=== PATIENT | male | born 1940 ===

== ENCOUNTER 2018-02-20 11:07 | Observation (INO) | payer MEDICARE, OTHER ==
[2017-10-12 21:37] VITALS: PULSE 158
[2018-02-20 11:18] VITALS: BMI 25.8
[2018-02-20 11:32] LABS: BASO # 0.1 K/uL (0.0-0.2); BASO % 1.4 % (0.0-2.0); EOS # 0.5 K/uL (0.0-0.7); EOS % 6.5 % (0.0-4.0); HEMOGLOBIN 11.4 g/dL (12.0-18.0); LYMPH % 24.9 % (20.0-40.0); MEAN CORPUSCULAR HEMOGLOBIN 28.2 pg (27.0-31.0); MEAN CORPUSCULAR HGB CONC 32.8 g/dL (33.0-37.0); MEAN PLATELET VOLUME 7.5 fL (7.2-11.7); MONO # 0.7 K/uL (0.0-0.8); MONO % 9.1 % (0.0-10.0); NEUT # 4.7 K/uL (1.8-7.0); NEUT % 58.1 % (50.0-75.0); RBC 4.03 Mil/uL (4.40-5.90); RED CELL DISTRIBUTION WIDTH 15.3 % (11.5-14.5)
[2018-02-20 11:52] LABS: INR 0.9; PROTHROMBIN TIME 10.6 SECONDS (9.7-12.2)
[2018-02-20 12:06] LABS: CALCIUM 8.5 mg/dl (8.6-10.4)
[2018-02-20] MEDS ORDERED: Iodixanol 320 MG/ML 100 ML BOTTLE IV ONE ×2 (12:18→13:13)
[2018-02-20] MEDS ORDERED: Midazolam 2 MG/2 ML VIAL ONE (12:43)
--- NOTE | 2018-02-20 14:57 | CP.PCM.HP ---
<Kelton Campos - Last Filed: 02/20/18 17:30> History of Present Illness - History of Present Illness History of Present Illness: PGY-1 H&P for Dr. Whiting CC: Admitted post-cardiac cath This is a 77 year old with PMHx ESRD on HD(M,W,F), HTN, HLD, cardiomyopathy, systolic CHF who presents to the hospital for cardiac catheterization performed by Dr. Francis. Patient has been experiencing dyspnea on exertion. At rest, patient states that he is stable and has no issues. Patient is not in any pain. He is being admitted to undergo dialysis post-procedure. Per Dr. Francis, coronaries were normal; however EF was 20%. Patient is also to undergo EP evaluation on this admission for possible Life Vest leading up to AICD. Patient himself endorses no acute complaints at this time. He is resting comfortably post-procedure. PMHx: ESRD on HD(M,W,F), HTN, HLD, cardiomyopathy, systolic CHF PSHx: LUE AV fistula, appendectomy, cholecystectomy, hernia repair Allergies: NKDA Social: Denies tobacco, drugs, alcohol. Lives with his children. Family Hx: Patient is unsure. PMD: Dr. Donell Mon Top Stitcher: Dr. Beach [place] meds: Ambien 10 HS, Norvasc 5 daily, Valsartan 320 daily, Linzess 145 mcg daily, Omeprazole 40 mg daily, ASA 81 daily Present on Admission - Present on Admission Any Indicators Present on Admission: No Review of Systems - Constitutional Constitutional: absent: Chills, Fever - EENT Eyes: absent: Change in Vision Ears: absent: Decreased Hearing Nose/Mouth/Throat: absent: Nasal Congestion - Cardiovascular Cardiovascular: absent: Chest Pain - Respiratory Respiratory: absent: Dyspnea - Gastrointestinal Gastrointestinal: absent: Abdominal Pain, Nausea, Vomiting - Genitourinary Genitourinary: absent: Dysuria - Musculoskeletal Musculoskeletal: absent: Back Pain - Integumentary Integumentary: absent: Rash - Neurological Neurological: absent: Dizziness, Weakness - Psychiatric Psychiatric: absent: Anxiety - Endocrine Endocrine: absent: Palpitations Past Patient History - Past Medical History & Family History Past Medical History?: Yes - Past Social History Smoking Status: Never Smoked - CARDIAC Hx Cardiac Disorders: Yes (CARDIOMYOPATHY) Hx Congestive Heart Failure: Yes (QUESTIONABLE) Hx Hypercholesterolemia: Yes Hx Hypertension: Yes - PULMONARY Hx Respiratory Disorders: Yes (SOB) - NEUROLOGICAL Hx Neurological Disorder: No Hx Dizziness: Yes - HEENT Hx HEENT Problems: No - RENAL Hx Chronic Kidney Disease: Yes Type of Dialysis Access: FISTULA RIGHT ARM Date of Last Dialysis Treatment: 02/17/18 Hx Renal Failure: Yes - ENDOCRINE/METABOLIC Hx Endocrine Disorders: No - HEMATOLOGICAL/ONCOLOGICAL Hx Blood Disorders: No Hx AIDS: No - INTEGUMENTARY Hx Dermatological Problems: No - MUSCULOSKELETAL/RHEUMATOLOGICAL Hx Musculoskeletal Disorders: No Hx Falls: No - GASTROINTESTINAL Hx Gastrointestinal Disorders: Yes Hx Colitis: Yes Hx Gall Bladder Disease: Yes Hx Pancreatitis: Yes - GENITOURINARY/GYNECOLOGICAL Hx Genitourinary Disorders: Yes (ANURIA) - PSYCHIATRIC Hx Psychophysiologic Disorder: No Hx Emotional Abuse: No Hx Physical Abuse: No Hx Substance Use: No - SURGICAL HISTORY Hx Surgeries: Yes Hx Appendectomy: Yes Hx Cholecystectomy: Yes Hx Herniorrhaphy: Yes Hx Vascular Surgery: Yes (left AV fistula) - ANESTHESIA Hx Anesthesia: Yes Hx Anesthesia Reactions: No Hx Malignant Hyperthermia: No Has any member of the family had a problem w/ anesthesia?: No Meds Allergies/Adverse Reactions: Allergies Allergy/AdvReac Type Severity Reaction Status Date / Time No Known Allergies Allergy Verified 08/25/16 09:50 Physical Exam - Constitutional Appears: No Acute Distress - Head Exam Head Exam: ATRAUMATIC, NORMOCEPHALIC - Eye Exam Eye Exam: EOMI, PERRL - ENT Exam ENT Exam: Mucous Membranes Moist - Respiratory Exam Respiratory Exam: Clear to Auscultation Bilateral, NORMAL BREATHING PATTERN. absent: Rales, Rhonchi, Wheezes - Cardiovascular Exam Cardiovascular Exam: REGULAR RHYTHM, +S1, +S2 - GI/Abdominal Exam GI & Abdominal Exam: Normal Bowel Sounds, Soft. absent: Distended, Tenderness - Extremities Exam Extremities exam: Positive for: pedal pulses present. Negative for: pedal edema , tenderness - Neurological Exam Neurological exam: Alert, CN II-XII Intact - Psychiatric Exam Psychiatric exam: Normal Affect, Normal Mood - Skin Skin Exam: Dry, Warm Additional comments: Right side site of cardiac cath insertion is without any signs of hematoma. No bleeding noted. Results - Labs Result Diagrams: 02/20/18 11:28 02/20/18 11:28 Labs: Laboratory Results - last 24 hr 02/20/18 02/20/18 02/20/18 11:28 11:28 11:28 WBC 8.0 RBC 4.03 L Hgb 11.4 L Hct 34.7 L MCV 86.0 MCH 28.2 MCHC 32.8 L RDW 15.3 H Plt Count 261 MPV 7.5 Neut % (Auto) 58.1 Lymph % (Auto) 24.9 [place] % (Auto) 9.1 Eos % (Auto) 6.5 H Baso % (Auto) 1.4 Neut # (Auto) 4.7 Lymph # (Auto) 2.0 [place] # (Auto) 0.7 Eos # (Auto) 0.5 Baso # (Auto) 0.1 PT 10.6 INR 0.9 APTT 28 Sodium 139 Potassium 5.8 H Chloride 99 Carbon Dioxide 26 Anion Gap 20 BUN 61 H Creatinine 10.7 H* Est GFR ( Amer) 6 Est GFR (Non-Af Amer) 5 Random Glucose 80 Calcium 8.5 L Assessment & Plan - Assessment and Plan (Free Text) Plan: Cardiomyopathy Cardiac cath performed by Dr. Francis shows Normal coronaries and EF 20% EP consult, Dr. Malone, help appreciated. Will evaluate for Life Vest and AICD Start Coreg 3.125 mg PO BID Home med Diovan not on formulary--switched to Cozaar 100 mg PO daily Resumed home aspirin 81 mg daily EKG unchanged from old ones History of ESRD Nephrology consult, Dr. Olivo, help appreciated Dialysis MWF History of HTN Resumed home amlodipine 5 mg daily Home med Diovan not on formulary--switched to Cozaar 100 mg PO daily Prophylaxis Protonix 40 mg PO daily Heparin 5k SC Q12 Renal diet Discussed with Dr. Henok Campos PGY-1 <Raul Whiting - Last Filed: 02/22/18 09:58> Results - Vital Signs Recent Vital Signs: Last Vital Signs Temp 98.2 F 02/22/18 08:21 Pulse 74 02/22/18 08:21 Resp 20 02/22/18 08:21 BP 138/80 02/22/18 08:21 Pulse Ox 96 02/22/18 08:21 - Labs Result Diagrams: 02/22/18 08:02 02/22/18 08:02 Labs: Laboratory Results - last 24 hr 02/22/18 02/22/18 08:02 08:02 WBC 6.9 RBC 3.79 L Hgb 10.5 L Hct 32.4 L MCV 85.5 MCH 27.7 MCHC 32.5 L RDW 14.9 H Plt Count 234 MPV 8.2 Neut % (Auto) 43.4 L Lymph % (Auto) 30.3 [place] % (Auto) 11.2 H Eos % (Auto) 14.6 H Baso % (Auto) 0.5 Neut # (Auto) 3.0 Lymph # (Auto) 2.1 [place] # (Auto) 0.8 Eos # (Auto) 1.0 H Baso # (Auto) 0.0 Sodium 135 Potassium 5.2 Chloride 95 L Carbon Dioxide 28 Anion Gap 17 BUN 50 H Creatinine 10.1 H* D Est GFR ( Amer) 6 Est GFR (Non-Af Amer) 5 Random Glucose 70 L Calcium 8.2 L Phosphorus 5.2 H Magnesium 2.2 Attending/Attestation - Attestation I have personally seen and examined this patient.: Yes I have fully participated in the care of the patient.: Yes I have reviewed all pertinent clinical information: Yes Notes (Text): patient was seen and examined Has no complain,denies sob d/w Dr Francis s/p cardiac cath .cath performed by Dr. Francis shows Normal coronaries and EF 20% EP consult, Dr. Malone, patient will have Life Vest before discharge ESRD on HD-follow nephrology Resume home meds I agree withe the documentation of the resident's assessment and the plan pending life vest
--- NOTE | 2018-02-20 15:50 | CP.PCM.CON ---
History of Present Illness - History of Present Illness History of Present Illness: Renal Note pt seen and examined n SOB. no edema s/p cardiac cath today HD today as per MWF schedule has left AVF Thanks for consult Please call if any Q Dr Justen Hudson Past Patient History - Past Medical History & Family History Past Medical History?: Yes - Past Social History Smoking Status: Never Smoked - CARDIAC Hx Cardiac Disorders: Yes (CARDIOMYOPATHY) Hx Congestive Heart Failure: Yes (QUESTIONABLE) Hx Hypercholesterolemia: Yes Hx Hypertension: Yes - PULMONARY Hx Respiratory Disorders: Yes (SOB) - NEUROLOGICAL Hx Neurological Disorder: No Hx Dizziness: Yes - HEENT Hx HEENT Problems: No - RENAL Hx Chronic Kidney Disease: Yes Type of Dialysis Access: FISTULA RIGHT ARM Date of Last Dialysis Treatment: 02/17/18 Hx Renal Failure: Yes - ENDOCRINE/METABOLIC Hx Endocrine Disorders: No - HEMATOLOGICAL/ONCOLOGICAL Hx Blood Disorders: No Hx AIDS: No - INTEGUMENTARY Hx Dermatological Problems: No - MUSCULOSKELETAL/RHEUMATOLOGICAL Hx Musculoskeletal Disorders: No Hx Falls: No - GASTROINTESTINAL Hx Gastrointestinal Disorders: Yes Hx Colitis: Yes Hx Gall Bladder Disease: Yes Hx Pancreatitis: Yes - GENITOURINARY/GYNECOLOGICAL Hx Genitourinary Disorders: Yes (ANURIA) - PSYCHIATRIC Hx Psychophysiologic Disorder: No Hx Emotional Abuse: No Hx Physical Abuse: No Hx Substance Use: No - SURGICAL HISTORY Hx Surgeries: Yes Hx Appendectomy: Yes Hx Cholecystectomy: Yes Hx Herniorrhaphy: Yes Hx Vascular Surgery: Yes (left AV fistula) - ANESTHESIA Hx Anesthesia: Yes Hx Anesthesia Reactions: No Hx Malignant Hyperthermia: No Has any member of the family had a problem w/ anesthesia?: No Meds Allergies/Adverse Reactions: Allergies Allergy/AdvReac Type Severity Reaction Status Date / Time No Known Allergies Allergy Verified 08/25/16 09:50 - Medications Medications: Current Medications Carvedilol (Coreg) 3.125 mg PO BID [facility] Heparin Sodium (Porcine) (Heparin) 5,000 units SC Q12 [facility] Results - Labs Result Diagrams: 02/20/18 11:28 02/20/18 11:28 Labs: Laboratory Results - last 24 hr 02/20/18 02/20/18 02/20/18 11:28 11:28 11:28 WBC 8.0 RBC 4.03 L Hgb 11.4 L Hct 34.7 L MCV 86.0 MCH 28.2 MCHC 32.8 L RDW 15.3 H Plt Count 261 MPV 7.5 Neut % (Auto) 58.1 Lymph % (Auto) 24.9 [place] % (Auto) 9.1 Eos % (Auto) 6.5 H Baso % (Auto) 1.4 Neut # (Auto) 4.7 Lymph # (Auto) 2.0 [place] # (Auto) 0.7 Eos # (Auto) 0.5 Baso # (Auto) 0.1 PT 10.6 INR 0.9 APTT 28 Sodium 139 Potassium 5.8 H Chloride 99 Carbon Dioxide 26 Anion Gap 20 BUN 61 H Creatinine 10.7 H* Est GFR ( Amer) 6 Est GFR (Non-Af Amer) 5 Random Glucose 80 Calcium 8.5 L
--- NOTE | 2018-02-20 23:01 | CP.PCM.CON ---
History of Present Illness - History of Present Illness History of Present Illness: Chart nd imaging reviewed Patient seen and examined at bedside Offered no complaints Admitted for an elective cardiac cath based on a 'positiuve stress test; cardiac cath this am showed non obstructive coronary artery disease and severe dilated cardiomyopathy Effort intolerance NYHA II Past medical history Systemic hypertension Hyperlipidemia CHF ESRD on dialyses Past surgery: AV fistula Gall bladder removal Hernia Denied smoking alcohol or drug abuse Medications: valsartan amlodipine Exam Lying in bed with no distress Normal venous pressures Left AV fistula Abnormal veins left precordium Clear lungs Normal heart sounds ?PMI Abdomen soft No edema DP? EKG: Unavailalble Tele: sinus Past Patient History - Past Medical History & Family History Past Medical History?: Yes - Past Social History Smoking Status: Never Smoked - CARDIAC Hx Cardiac Disorders: Yes (CARDIOMYOPATHY) Hx Congestive Heart Failure: Yes (QUESTIONABLE) Hx Hypercholesterolemia: Yes Hx Hypertension: Yes - PULMONARY Hx Respiratory Disorders: Yes (SOB) - NEUROLOGICAL Hx Neurological Disorder: No Hx Dizziness: Yes - HEENT Hx HEENT Problems: No - RENAL Hx Chronic Kidney Disease: Yes Type of Dialysis Access: FISTULA RIGHT ARM Date of Last Dialysis Treatment: 02/17/18 Hx Renal Failure: Yes - ENDOCRINE/METABOLIC Hx Endocrine Disorders: No - HEMATOLOGICAL/ONCOLOGICAL Hx Blood Disorders: No Hx AIDS: No - INTEGUMENTARY Hx Dermatological Problems: No - MUSCULOSKELETAL/RHEUMATOLOGICAL Hx Musculoskeletal Disorders: No Hx Falls: No - GASTROINTESTINAL Hx Gastrointestinal Disorders: Yes Hx Colitis: Yes Hx Gall Bladder Disease: Yes Hx Pancreatitis: Yes - GENITOURINARY/GYNECOLOGICAL Hx Genitourinary Disorders: Yes (ANURIA) - PSYCHIATRIC Hx Psychophysiologic Disorder: No Hx Emotional Abuse: No Hx Physical Abuse: No Hx Substance Use: No - SURGICAL HISTORY Hx Surgeries: Yes Hx Appendectomy: Yes Hx Cholecystectomy: Yes Hx Herniorrhaphy: Yes Hx Vascular Surgery: Yes (left AV fistula) - ANESTHESIA Hx Anesthesia: Yes Hx Anesthesia Reactions: No Hx Malignant Hyperthermia: No Has any member of the family had a problem w/ anesthesia?: No Meds Allergies/Adverse Reactions: Allergies Allergy/AdvReac Type Severity Reaction Status Date / Time No Known Allergies Allergy Verified 08/25/16 09:50 - Medications Medications: Current Medications Amlodipine Besylate (Norvasc) 5 mg PO DAILY [facility] Aspirin (Aspirin Chewable) 81 mg PO DAILY [facility] Carvedilol (Coreg) 3.125 mg PO BID [facility] Last Admin: 02/20/18 18:34 Dose: Not Given Heparin Sodium (Porcine) (Heparin) 5,000 units SC Q12 [facility] Last Admin: 02/20/18 21:56 Dose: Not Given Losartan Potassium (Cozaar) 100 mg PO DAILY [facility] Pneumococcal Polyvalent Vaccine (Pneumovax 23 Vaccine) 0.5 ml IM .ONCE ONE Stop: 02/22/18 10:01 Zolpidem Tartrate (Ambien) 5 mg PO HS PRN PRN Reason: Insomnia Last Admin: 02/20/18 21:57 Dose: 5 mg Results - Vital Signs Recent Vital Signs: Last Vital Signs Temp 97.4 F L 02/20/18 21:10 Pulse 91 H 02/20/18 18:51 Resp 16 02/20/18 21:10 BP 98/61 L 02/20/18 21:10 Pulse Ox 97 02/20/18 21:10 - Labs Result Diagrams: 02/20/18 11:28 02/20/18 11:28 Labs: Laboratory Results - last 24 hr 02/20/18 02/20/18 02/20/18 11:28 11:28 11:28 WBC 8.0 RBC 4.03 L Hgb 11.4 L Hct 34.7 L MCV 86.0 MCH 28.2 MCHC 32.8 L RDW 15.3 H Plt Count 261 MPV 7.5 Neut % (Auto) 58.1 Lymph % (Auto) 24.9 [place] % (Auto) 9.1 Eos % (Auto) 6.5 H Baso % (Auto) 1.4 Neut # (Auto) 4.7 Lymph # (Auto) 2.0 [place] # (Auto) 0.7 Eos # (Auto) 0.5 Baso # (Auto) 0.1 PT 10.6 INR 0.9 APTT 28 Sodium 139 Potassium 5.8 H Chloride 99 Carbon Dioxide 26 Anion Gap 20 BUN 61 H Creatinine 10.7 H* Est GFR ( Amer) 6 Est GFR (Non-Af Amer) 5 Random Glucose 80 Calcium 8.5 L Assessment & Plan - Assessment and Plan (Free Text) Assessment: Mr. Manzo has a severe non ischemic dilated cardiomyopathy of unclear duration; if >3 months is documented would consider an ICD implant versus a life vest implant There are no high risk factors obvious (syncope ventricular tachycardia) Plan: as outlined
--- NOTE | 2018-02-20 23:07 | CARDCATH ---
PROCEDURE DATE: INDICATIONS: The patient is 77 years old male who has history of hypertension, end-stage renal disease, on hemodialysis presented for an elective Lexiscan at [facility]. Last Tuesday, the patient was noted to have new ischemic lateral T-wave changes. An echocardiographic study was consistent with cardiomyopathy. The stress test was canceled. The patient is scheduled for cardiac catheterization at [facility] after the case was discussed with the primary associate artistic director, Dr. Beach. The procedure and its risks were thoroughly explained to the patient, who understood and agreed for the procedure. The plan is to have the patient undergo his scheduled hemodialysis on Tuesday after the cardiac catheterization. PROCEDURE: After local infiltration with 1% lidocaine, a 6-Irish sheath was placed in the right femoral artery. Left and right coronary angiography was performed with 6-Irish JL4.5 and JR4 diagnostic catheters. Left ventriculogram was performed with a 6-Irish pigtail catheter with a manual injection because the power injector was not operational. The patient tolerated the procedure well without any complications. ANGIOGRAPHIC FINDINGS: Selective injection of the left coronary artery revealed the left main to be a very short normal vessel that immediately bifurcated into medium-sized LAD, and a large caliber dominant circumflex artery. The LAD had insignificant luminal irregularities proximally and the rest of the left coronary circulation was angiographically unremarkable. Selective injection of the right coronary artery revealed a small nondominant vessel. This was angiographically unremarkable. Left ventriculogram performed in [place]O projection revealed dilated and severely and diffusely hypokinetic left ventricle, ejection fraction was estimated at about 20%. CONCLUSION: 1. Nonischemic cardiomyopathy. 2. Hypertension. 3. End-stage renal disease. PLAN: The patient will be observed overnight on telemetry and will undergo his hemodialysis today. The case will be discussed with primary associate artistic director, Dr. Beach, regarding the indication of future implantable cardioverter defibrillator placement and possibility of an external Vest placement for now. Shane Francis MD
--- NOTE | 2018-02-21 07:15 | CP.PCM.PN ---
<Kelton Campos - Last Filed: 02/21/18 16:22> Subjective - Date & Time of Evaluation Date of Evaluation: 02/21/18 Time of Evaluation: 10:10 - Subjective Subjective: Medicine progress note for Dr. Whiting Patient seen and examined. Patient reports that he is doing well and has no acute complaints at this time. No acute events noted. Patient is awaiting Life Vest. Objective - Vital Signs/Intake and Output Vital Signs (last 24 hours): Temp Pulse Resp BP Pulse Ox 98.4 F 69 20 145/82 97 02/21/18 05:43 02/21/18 05:43 02/21/18 05:43 02/21/18 05:43 02/21/18 05:43 Intake and Output: 02/21/18 02/21/18 06:59 18:59 Intake Total 200 Balance 200 - Medications Medications: Current Medications Amlodipine Besylate (Norvasc) 5 mg PO DAILY [facility] BEDS AT [facility] Aspirin (Aspirin Chewable) 81 mg PO DAILY [facility] 234 BEDS AT [facility] Carvedilol (Coreg) 3.125 mg PO BID [facility]S [facility]CLUDE 234 BEDS AT [facility] Last Admin: 02/20/18 18:34 Dose: Not Given Heparin Sodium (Porcine) (Heparin) 5,000 units SC Q12 [facility]S INCLUDE 234 BEDS AT [facility] Last Admin: 02/20/18 21:56 Dose: Not Given Losartan Potassium (Cozaar) 100 mg PO DAILY COUNTS INCLUDE 234 BEDS AT [facility] Pneumococcal Polyvalent Vaccine (Pneumovax 23 Vaccine) 0.5 ml IM .ONCE ONE Stop: 02/22/18 10:01 Zolpidem Tartrate (Ambien) 5 mg PO HS PRN PRN Reason: Insomnia Last Admin: 02/20/18 21:57 Dose: 5 mg - Labs Labs: 02/20/18 11:28 02/20/18 11:28 PT 10.6 SECONDS (9.7-12.2) 02/20/18 11:28 INR 0.9 02/20/18 11:28 APTT 28 SECONDS (21-34) 02/20/18 11:28 - Additional Findings Additional findings: - Constitutional Appears: No Acute Distress - Head Exam Head Exam: ATRAUMATIC, NORMOCEPHALIC - Eye Exam Eye Exam: EOMI, PERRL - ENT Exam ENT Exam: Mucous Membranes Moist - Respiratory Exam Respiratory Exam: Clear to Auscultation Bilateral, NORMAL BREATHING PATTERN. absent: Rales, Rhonchi, Wheezes - Cardiovascular Exam Cardiovascular Exam: REGULAR RHYTHM, +S1, +S2 - GI/Abdominal Exam GI & Abdominal Exam: Normal Bowel Sounds, Soft. absent: Distended, Tenderness - Extremities Exam Extremities exam: Positive for: pedal pulses present. Negative for: pedal edema , tenderness - Neurological Exam Neurological exam: Alert, CN II-XII Intact - Psychiatric Exam Psychiatric exam: Normal Affect, Normal Mood - Skin Skin Exam: Dry, Warm Assessment and Plan - Assessment and Plan (Free Text) Plan: Non-ischemic Cardiomyopathy Cardiac cath performed by Dr. Francis shows Normal coronaries and EF 20% EP consult, Dr. Malone, help appreciated. Start Coreg 3.125 mg PO BID Home med Diovan not on formulary--switched to Cozaar 100 mg PO daily Resumed home aspirin 81 mg daily EKG unchanged from old ones Patient is awaiting Life Vest History of ESRD Nephrology consult, Dr. Olivo, help appreciated Dialysis MWF History of HTN Resumed home amlodipine 5 mg daily Home med Diovan not on formulary--switched to Cozaar 100 mg PO daily Prophylaxis Protonix 40 mg PO daily Heparin 5k SC Q12 Renal diet Disposition: Discharge is pending life vest. Discussed with Dr. Henok Campos PGY-1 <Raul Whiting - Last Filed: 02/22/18 12:16> Objective - Vital Signs/Intake and Output Vital Signs (last 24 hours): Temp Pulse Resp BP Pulse Ox 97.9 F 75 16 185/89 H 98 02/22/18 09:10 02/22/18 09:00 02/22/18 09:10 02/22/18 11:20 02/22/18 09:10 - Medications Medications: Current Medications Amlodipine Besylate (Norvasc) 5 mg PO DAILY [facility]S INCLUDE 234 BEDS AT [facility] Last Admin: 02/21/18 09:32 Dose: 5 mg Aspirin (Aspirin Chewable) 81 mg PO DAILY [facility]S INCLUDE 234 BEDS AT [facility] Last Admin: 02/21/18 09:32 Dose: 81 mg Carvedilol (Coreg) 3.125 mg PO BID COUNTS INCLUDE 234 BEDS AT [facility] Last Admin: 02/21/18 17:25 Dose: 3.125 mg Heparin Sodium (Porcine) (Heparin) 5,000 units SC Q12 COUNTS INCLUDE 234 BEDS AT [facility] Last Admin: 02/21/18 22:00 Dose: 5,000 units Losartan Potassium (Cozaar) 100 mg PO DAILY [facility] Last Admin: 02/21/18 09:32 Dose: 100 mg Zolpidem Tartrate (Ambien) 5 mg PO HS PRN PRN Reason: Insomnia Last Admin: 02/21/18 22:00 Dose: 5 mg - Labs Labs: 02/22/18 08:02 02/22/18 08:02 PT 10.6 SECONDS (9.7-12.2) 02/20/18 11:28 INR 0.9 02/20/18 11:28 APTT 28 SECONDS (21-34) 02/20/18 11:28 Attending/Attestation - Attestation I have personally seen and examined this patient.: Yes I have fully participated in the care of the patient.: Yes I have reviewed all pertinent clinical information, including history, physical exam and plan: Yes Notes (Text): Patient has no complain seen and examined. d/w Dr Francis Life vest ordered. Patient is awaiting Life Vest I agree with the resident's documentation of the assessment and the plan
[2018-02-21 07:58] LABS: BASO % 0.5 % (0.0-2.0); EOS # 0.4 K/uL (0.0-0.7); EOS % 5.9 % (0.0-4.0); LYMPH # 1.8 K/uL (1.0-4.3); LYMPH % 26.8 % (20.0-40.0); MEAN CELL VOLUME 84.9 fL (80.0-94.0); MEAN CORPUSCULAR HEMOGLOBIN 28.3 pg (27.0-31.0); MEAN CORPUSCULAR HGB CONC 33.4 g/dL (33.0-37.0); MEAN PLATELET VOLUME 8.1 fL (7.2-11.7); MONO # 0.7 K/uL (0.0-0.8); MONO % 9.9 % (0.0-10.0); NEUT # 3.8 K/uL (1.8-7.0); NEUT % 56.9 % (50.0-75.0); RBC 3.88 Mil/uL (4.40-5.90); RED CELL DISTRIBUTION WIDTH 14.8 % (11.5-14.5); WHITE BLOOD COUNT 6.7 K/uL (4.8-10.8)
[2018-02-21 08:27] LABS: CALCIUM 8.3 mg/dl (8.6-10.4)
--- NOTE | 2018-02-21 12:05 | RAD ---
PROCEDURE: CHEST RADIOGRAPH, 1 VIEW HISTORY: CHF COMPARISON: None available. FINDINGS: LUNGS: The lungs are well inflated. There is mild pulmonary venous congestion. PLEURA: No pneumothorax or pleural fluid seen. CARDIOVASCULAR: There is mild cardiomegaly and prominent central vasculature. OSSEOUS STRUCTURES: No significant abnormalities. VISUALIZED UPPER ABDOMEN: Normal. OTHER FINDINGS: None. IMPRESSION: Mild cardiomegaly and pulmonary venous congestion.
--- NOTE | 2018-02-21 17:13 | PN ---
DATE: SUBJECTIVE: The patient underwent hemodialysis yesterday. He denies chest pain or shortness of breath. No groin bleeding. PHYSICAL EXAMINATION VITAL SIGNS: Blood pressure 131/77, heart rate 87, temperature 98.5, respirations 20. HEENT: Normocephalic. CHEST: Clear. HEART: S1 and S2 are regular. EXTREMITIES: No edema. LABORATORY DATA: Today's SMA-7: Sodium 136, potassium 4.9, chloride 94, CO2 28, glucose 67, BUN 32, creatinine 7.3. Today's hemoglobin and hematocrit are 11 and 32.9, white count and platelet count are within normal limits. The patient was evaluated by Dr. Malone yesterday. IMPRESSION: Cardiomyopathy of unclear duration. If more than three months is documented, we would consider an implantable cardioverter-defibrillator implant versus LifeVest implant. ASSESSMENT: 1. Nonischemic cardiomyopathy. 2. End-stage renal disease, on hemodialysis. 3. Hypertension. RECOMMENDATIONS: The case was discussed with Dr. Malone. The patient will be on aspirin 81 mg once a day, Coreg 3.125 mg twice a day, Cozaar 100 mg once a day, subcutaneous heparin 5000 units twice a day, Norvasc at 5 mg once a day. The patient will have yesterday. We will follow up echo in three months prior to considering an ICD placement. The case was discussed yesterday with the primary director of digital marketing, Dr. Beach. The decision of long-term anticoagulation will be addressed by Dr. Beach. Shane Francis MD
--- NOTE | 2018-02-22 07:09 | CP.PCM.PN ---
Subjective - Date & Time of Evaluation Date of Evaluation: 02/22/18 Time of Evaluation: 07:20 - Subjective Subjective: Medicine progress note for Dr. Whiting Patient seen and examined. Patient has no complaints at this time. Patient is awaiting dialysis later this morning. Patient is also awaiting Life Vest authorization. Objective - Vital Signs/Intake and Output Vital Signs (last 24 hours): Temp Pulse Resp BP Pulse Ox 98.2 F 79 20 130/66 97 02/21/18 23:40 02/22/18 04:04 02/21/18 23:40 02/21/18 23:40 02/21/18 23:40 - Medications Medications: Current Medications Amlodipine Besylate (Norvasc) 5 mg PO DAILY [facility] Last Admin: 02/21/18 09:32 Dose: 5 mg Aspirin (Aspirin Chewable) 81 mg PO DAILY [facility] Last Admin: 02/21/18 09:32 Dose: 81 mg Carvedilol (Coreg) 3.125 mg PO BID [facility] Last Admin: 02/21/18 17:25 Dose: 3.125 mg Heparin Sodium (Porcine) (Heparin) 5,000 units SC Q12 [facility] Last Admin: 02/21/18 22:00 Dose: 5,000 units Losartan Potassium (Cozaar) 100 mg PO DAILY [facility] Last Admin: 02/21/18 09:32 Dose: 100 mg Pneumococcal Polyvalent Vaccine (Pneumovax 23 Vaccine) 0.5 ml IM .ONCE ONE Stop: 02/22/18 10:01 Zolpidem Tartrate (Ambien) 5 mg PO HS PRN PRN Reason: Insomnia Last Admin: 02/21/18 22:00 Dose: 5 mg - Labs Labs: 02/21/18 07:41 02/21/18 07:41 PT 10.6 SECONDS (9.7-12.2) 02/20/18 11:28 INR 0.9 02/20/18 11:28 APTT 28 SECONDS (21-34) 02/20/18 11:28 - Additional Findings Additional findings: - Constitutional Appears: No Acute Distress - Head Exam Head Exam: ATRAUMATIC, NORMOCEPHALIC - Eye Exam Eye Exam: EOMI, PERRL - ENT Exam ENT Exam: Mucous Membranes Moist - Respiratory Exam Respiratory Exam: Clear to Auscultation Bilateral, NORMAL BREATHING PATTERN. absent: Rales, Rhonchi, Wheezes - Cardiovascular Exam Cardiovascular Exam: REGULAR RHYTHM, +S1, +S2 - GI/Abdominal Exam GI & Abdominal Exam: Normal Bowel Sounds, Soft. absent: Distended, Tenderness - Extremities Exam Extremities exam: Positive for: pedal pulses present. Negative for: pedal edema , tenderness - Neurological Exam Neurological exam: Alert, CN II-XII Intact - Psychiatric Exam Psychiatric exam: Normal Affect, Normal Mood - Skin Skin Exam: Dry, Warm Assessment and Plan - Assessment and Plan (Free Text) Plan: Non-ischemic Cardiomyopathy Cardiac cath performed by Dr. Francis shows Normal coronaries and EF 20% EP consult, Dr. Malone, help appreciated. Start Coreg 3.125 mg PO BID Home med Diovan not on formulary--switched to Cozaar 100 mg PO daily Resumed home aspirin 81 mg daily EKG unchanged from old ones Patient is awaiting Life Vest History of ESRD Nephrology consult, Dr. Olivo, help appreciated Dialysis MWF History of HTN Resumed home amlodipine 5 mg daily Home med Diovan not on formulary--switched to Cozaar 100 mg PO daily Prophylaxis Protonix 40 mg PO daily Heparin 5k SC Q12 Renal diet Disposition: Discharge is pending life vest. Discussed with Dr. Henok Campos PGY-1
[2018-02-22 08:17] LABS: BASO % 0.5 % (0.0-2.0); EOS % 14.6 % (0.0-4.0); HEMOGLOBIN 10.5 g/dL (12.0-18.0); LYMPH # 2.1 K/uL (1.0-4.3); LYMPH % 30.3 % (20.0-40.0); MEAN CELL VOLUME 85.5 fL (80.0-94.0); MEAN CORPUSCULAR HEMOGLOBIN 27.7 pg (27.0-31.0); MEAN CORPUSCULAR HGB CONC 32.5 g/dL (33.0-37.0); MEAN PLATELET VOLUME 8.2 fL (7.2-11.7); MONO # 0.8 K/uL (0.0-0.8); MONO % 11.2 % (0.0-10.0); NEUT % 43.4 % (50.0-75.0); RBC 3.79 Mil/uL (4.40-5.90); RED CELL DISTRIBUTION WIDTH 14.9 % (11.5-14.5); WHITE BLOOD COUNT 6.9 K/uL (4.8-10.8)
[2018-02-22 08:36] LABS: CALCIUM 8.2 mg/dl (8.6-10.4)
[2018-02-22] MEDS ORDERED: Influenza Vaccine 60 mcg/0.5 mL SYR (4YR UP) IM ONE (10:00)
[2018-02-22] MEDS ORDERED: Pneumococcal 23-Valent Vaccine IM ONE ×2 (10:00→14:15)
--- NOTE | 2018-02-22 11:18 | CP.PCM.PN ---
Subjective - Date & Time of Evaluation Date of Evaluation: 02/22/18 Time of Evaluation: 11:16 - Subjective Subjective: Renal note Patient seen on dialysis doing well no complaint Denies any chest pain palpitations and shortness of breath Vital signs stable Tolerating dialysis well Continue hemodialysis as ordered Discussed With primary team Patient awaiting LifeVest, then will be planned for discharge Objective - Vital Signs/Intake and Output Vital Signs (last 24 hours): Temp Pulse Resp BP Pulse Ox 97.9 F 75 16 153/87 H 98 02/22/18 09:10 02/22/18 09:00 02/22/18 09:10 02/22/18 10:20 02/22/18 09:10 - Medications Medications: Current Medications Amlodipine Besylate (Norvasc) 5 mg PO DAILY [facility] Last Admin: 02/21/18 09:32 Dose: 5 mg Aspirin (Aspirin Chewable) 81 mg PO DAILY [facility] Last Admin: 02/21/18 09:32 Dose: 81 mg Carvedilol (Coreg) 3.125 mg PO BID [facility] Last Admin: 02/21/18 17:25 Dose: 3.125 mg Heparin Sodium (Porcine) (Heparin) 5,000 units SC Q12 [facility] Last Admin: 02/21/18 22:00 Dose: 5,000 units Losartan Potassium (Cozaar) 100 mg PO DAILY [facility] Last Admin: 02/21/18 09:32 Dose: 100 mg Zolpidem Tartrate (Ambien) 5 mg PO HS PRN PRN Reason: Insomnia Last Admin: 02/21/18 22:00 Dose: 5 mg - Labs Labs: 02/22/18 08:02 02/22/18 08:02 PT 10.6 SECONDS (9.7-12.2) 02/20/18 11:28 INR 0.9 02/20/18 11:28 APTT 28 SECONDS (21-34) 02/20/18 11:28
--- NOTE | 2018-02-22 19:46 | PN ---
DATE: 02/22/2018 SUBJECTIVE: The patient denies chest pain or shortness of breath. He underwent hemodialysis today. PHYSICAL EXAMINATION: VITAL SIGNS: Blood pressure 153/86, heart rate 75, temperature 97.8, respirations 16. HEENT: Clear conjunctivae. CHEST: Clear. HEART: S1 and S2, regular. EXTREMITIES: Trace leg edema. LABORATORY DATA: Today's BUN and creatinine prior to hemodialysis were 50 and 10.1 respectively. Potassium was 5.2. Today's morning hemoglobin and hematocrit are 10.5 and 32.4 respectively, white count and platelet count are within normal limits. ASSESSMENT: 1. Dilated cardiomyopathy. 2. Hypertension. 3. End-stage renal disease, on hemodialysis. RECOMMENDATIONS: The patient can be discharged with a . Follow up with his primary obstetrics gyn, Dr. Beach. He will be maintained on aspirin, Coreg, Cozaar, and Norvasc therapy. Long-term anticoagulation with Coumadin will be decided by his primary obstetrics gyn based on the patient's outpatient compliance. Shane Francis MD
[2018-02-23 06:23] LABS: BASO % 0.4 % (0.0-2.0); EOS % 14.9 % (0.0-4.0); HEMOGLOBIN 10.6 g/dL (12.0-18.0); LYMPH # 2.2 K/uL (1.0-4.3); LYMPH % 32.5 % (20.0-40.0); MEAN CELL VOLUME 85.3 fL (80.0-94.0); MEAN CORPUSCULAR HEMOGLOBIN 27.8 pg (27.0-31.0); MEAN CORPUSCULAR HGB CONC 32.6 g/dL (33.0-37.0); MEAN PLATELET VOLUME 8.1 fL (7.2-11.7); MONO # 0.9 K/uL (0.0-0.8); MONO % 12.9 % (0.0-10.0); NEUT # 2.6 K/uL (1.8-7.0); NEUT % 39.3 % (50.0-75.0); NRBC % 0.1 % (0.0-2.0); RBC 3.82 Mil/uL (4.40-5.90); RED CELL DISTRIBUTION WIDTH 14.9 % (11.5-14.5); WHITE BLOOD COUNT 6.7 K/uL (4.8-10.8)
[2018-02-23 06:48] LABS: CALCIUM 8.2 mg/dl (8.6-10.4)
--- NOTE | 2018-02-23 09:30 | CP.PCM.DIS ---
Provider - Provider Date of Admission: 02/23/18 07:07 Attending physician: Raul Whiting MD Primary care physician: Dr. Donell Mon Consults: Cardiology: Dr. Francis Electrophysiology: Dr. Malone Nephrology: Dr. Olivo Time Spent in preparation of Discharge (in minutes): 40 Diagnosis - Discharge Diagnosis (1) Non-ischemic cardiomyopathy Status: Acute Priority: High (2) Systolic CHF Status: Chronic Priority: High (3) End stage renal disease Status: Chronic Priority: High (4) History of hypertension Status: Chronic Priority: Medium Hospital Course - Lab Results Lab Results: Most Recent Lab Values WBC 6.7 K/uL (4.8-10.8) 02/23/18 06:18 RBC 3.82 Mil/uL (4.40-5.90) L 02/23/18 06:18 Hgb 10.6 g/dL (12.0-18.0) L 02/23/18 06:18 Hct 32.6 % (35.0-51.0) L 02/23/18 06:18 MCV 85.3 fL (80.0-94.0) 02/23/18 06:18 MCH 27.8 pg (27.0-31.0) 02/23/18 06:18 MCHC 32.6 g/dL (33.0-37.0) L 02/23/18 06:18 RDW 14.9 % (11.5-14.5) H 02/23/18 06:18 Plt Count 187 K/uL (130-400) 02/23/18 06:18 MPV 8.1 fL (7.2-11.7) 02/23/18 06:18 Neut % (Auto) 39.3 % (50.0-75.0) L 02/23/18 06:18 Lymph % (Auto) 32.5 % (20.0-40.0) 02/23/18 06:18 Jennings % (Auto) 12.9 % (0.0-10.0) H 02/23/18 06:18 Eos % (Auto) 14.9 % (0.0-4.0) H 02/23/18 06:18 Baso % (Auto) 0.4 % (0.0-2.0) 02/23/18 06:18 Neut # (Auto) 2.6 K/uL (1.8-7.0) 02/23/18 06:18 Lymph # (Auto) 2.2 K/uL (1.0-4.3) 02/23/18 06:18 Jennings # (Auto) 0.9 K/uL (0.0-0.8) H 02/23/18 06:18 Eos # (Auto) 1.0 K/uL (0.0-0.7) H 02/23/18 06:18 Baso # (Auto) 0.0 K/uL (0.0-0.2) 02/23/18 06:18 PT 10.6 SECONDS (9.7-12.2) 02/20/18 11:28 INR 0.9 02/20/18 11:28 APTT 28 SECONDS (21-34) 02/20/18 11:28 Sodium 136 mmol/L (132-148) 02/23/18 06:18 Potassium 4.5 mmol/L (3.6-5.2) 02/23/18 06:18 Chloride 95 mmol/L (98-107) L 02/23/18 06:18 Carbon Dioxide 28 mmol/L (22-30) 02/23/18 06:18 Anion Gap 18 (10-20) 02/23/18 06:18 BUN 29 mg/dL (9-20) H 02/23/18 06:18 Creatinine 6.6 mg/dL (0.8-1.5) H 02/23/18 06:18 Est GFR ( Amer) 10 02/23/18 06:18 Est GFR (Non-Af Amer) 8 02/23/18 06:18 Random Glucose 72 mg/dL (75-110) L 02/23/18 06:18 Calcium 8.2 mg/dl (8.6-10.4) L 02/23/18 06:18 Phosphorus 4.7 mg/dL (2.5-4.5) H 02/23/18 06:18 Magnesium 2.0 mg/dL (1.6-2.3) 02/23/18 06:18 - Hospital Course Hospital Course: Initial Note: "This is a 77 year old with PMHx ESRD on HD(M,W,F), HTN, HLD, cardiomyopathy, systolic CHF who presents to the hospital for cardiac catheterization performed by Dr. Francis. Patient has been experiencing dyspnea on exertion. At rest, patient states that he is stable and has no issues. Patient is not in any pain. He is being admitted to undergo dialysis post-procedure. Per Dr. Francis, coronaries were normal; however EF was 20%. Patient is also to undergo EP evaluation on this admission for possible Life Vest leading up to AICD. Patient himself endorses no acute complaints at this time. He is resting comfortably post-procedure." Hospital course: Patient admitted post cardiac catheterization for electrophysiology evaluation given patient's non-ischemic cardiomyopathy with EF 20%. Dr. Malone the EP recommended that the patient be discharged with Life Vest, and if patient's cardiomyopathy does not improve in over 3 months, the patient can be considered for an ICD. Patient received the Life Vest and was taught how to use it. He is to follow up with primary and his personal plant etiologist Dr. Beach. Prescription was given for home health services. This is a summary of the hospital course. For more information, refer to the medical records. Discharge Exam - Additional Findings Additional findings: - Constitutional Appears: No Acute Distress - Head Exam Head Exam: ATRAUMATIC, NORMOCEPHALIC - Eye Exam Eye Exam: EOMI, PERRL - ENT Exam ENT Exam: Mucous Membranes Moist - Respiratory Exam Respiratory Exam: Clear to Auscultation Bilateral, NORMAL BREATHING PATTERN. absent: Rales, Rhonchi, Wheezes - Cardiovascular Exam Cardiovascular Exam: REGULAR RHYTHM, +S1, +S2 - GI/Abdominal Exam GI & Abdominal Exam: Normal Bowel Sounds, Soft. absent: Distended, Tenderness - Extremities Exam Extremities exam: Positive for: pedal pulses present. Negative for: pedal edema , tenderness Additional Comments: Left AV Fistula with bruits - Neurological Exam Neurological exam: Alert, CN II-XII Intact - Psychiatric Exam Psychiatric exam: Normal Affect, Normal Mood - Skin Skin Exam: Dry, Warm Discharge Plan - Discharge Medications Prescriptions: amLODIPine [Norvasc] 5 mg PO DAILY #30 tab Carvedilol [Coreg] 3.125 mg PO BID #60 tab Valsartan [Diovan] 320 mg PO DAILY #30 tab - Follow Up Plan Condition: STABLE Disposition: HOME/ ROUTINE Additional Instructions: Resume your home medications including Valsartan 320 mg daily, Amlodipine 5 mg daily. Start taking Carvedilol 3.125 mg twice a day. Please follow up with your primary physician Dr. Mon within 1 week of discharge. Please follow up with your plant etiologist Dr. Beach within 1 week of discharge. Please keep the Life Vest on as directed. If there are any new or worsening symptoms, please go to the nearest emergency room. Reanude lilian medicamentos en el hogar, incluyendo Valsartan 320 mg al da, Amlodipine 5 mg al da. Comience a anne-marie Carvedilol 3.125 mg dos veces al da. Por favor, jasmeet un seguimiento con ramirez mdico principal, el Dr. Mon, dentro de 1 semana de georgie sido dado de vijaya. Por favor, jasmeet un seguimiento con ramirez cardilogo, el Dr. Beach, dentro de 1 semana de georgie sido dado de vijaya. Por favor, mantenga el chaleco salvavidas cornel se indica. Si hay sntomas nuevos o que empeoran, vaya a la vinny de emergencias ms cercana. Referrals: Donell Mon MD [Family Provider] - Ronald Beach MD [Medical Doctor] - Clinical Quality Measures - CQM - Heart Failure Ejection Fraction: Less Than 40 % Left Ventricular Function to be assessed after discharge: Yes DAVIDSON Inhibitor Prescribed: No Contraindication/Reason for not providing: ARB instead Beta-Tomás Prescribed: Carvedilol Angiotensin II Receptor Tomás Prescribed: Yes AnticoagulationTherapy for Atrial Fibrillation/Atrialflutter: No Contraindication/Reason for not providing: not indicated Aldosterone Antagonist Prescribed: No Contraindication/Reason for not providing: not indicated Hydralazine Nitrate Prescribed: No Contraindication/Reason for not providing: not indicated Implantable Cardioverter Defibrillator Therapy: No Contraindication/Reason for not providing: Life Vest provided. Future assessment for AICD Cardiac Resynchronization Therapy Prescribed: No Contraindication/Reason for not providing: not indicated Will be discharged to: Home Follow Up Date (must be within 7 days from discharge): 03/02/18 Follow Up Time: 09:00
[2018-02-23 11:23] VITALS: BP 140/76; PULSE 71; RESP 20; TEMP 97.5; O2SAT 96
--- NOTE | 2018-02-23 20:25 | CP.PCM.PN ---
Subjective - Date & Time of Evaluation Date of Evaluation: 02/21/18 Time of Evaluation: 17:00 - Subjective Subjective: Seen and examined at bedside No events Telemetry reviewed No distress No JVD clear lungs No edema Objective - Vital Signs/Intake and Output Vital Signs (last 24 hours): Temp Pulse Resp BP Pulse Ox 97.5 F L 71 20 140/76 96 02/23/18 08:16 02/23/18 08:16 02/23/18 08:16 02/23/18 08:16 02/23/18 08:16 - Labs Labs: 02/23/18 06:18 02/23/18 06:18 PT 10.6 SECONDS (9.7-12.2) 02/20/18 11:28 INR 0.9 02/20/18 11:28 APTT 28 SECONDS (21-34) 02/20/18 11:28 Assessment and Plan - Assessment and Plan (Free Text) Assessment: Mr. Manzo has a severe non ischemic dilated cardiomyopathy of unclear duration; if >3 months is documented would consider an ICD implant versus a life vest implant There are no high risk factors obvious (syncope ventricular tachycardia) No interval change Life vest pending Outpatient follow up SEAN mann Plan: as outlined
== END 2018-02-23 10:28 | disposition home or self-care (01) ==
LOC: C.CATHLAB 11:07 → C.9S 12:35 → C.6T 16:56 → OBSVTOIN 02-23 07:07 → INTOOBSV 02-23 07:07
PROVIDERS: ADMIT Internal Medicine; ATTEND Internal Medicine
DX: I42.0 Dilated cardiomyopathy (principal); I13.2 Hypertensive heart and chronic kidney disease with heart failure and with stage 5 chronic kidney disease, or end stage renal disease; I25.10 Atherosclerotic heart disease of native coronary artery without angina pectoris; E78.5 Hyperlipidemia, unspecified; N18.6 End stage renal disease; I50.22 Chronic systolic (congestive) heart failure; Z99.2 Dependence on renal dialysis
CPT/HCPCS: 36415; 71045; 80048; 83735; 84100; 85025; 85610; 85730; 90732; 93005; 93452; 94770; 97110; 97116; 97162; C1769; C1887; C1893; G0009; G0257; G0378; G8978; G8979; J1644; Q9967